=== PATIENT | female | born 1985 | race Caucasian/White ===

== ENCOUNTER → 2021-01-01 | Outpatient (CLI) | payer MEDICAID | END | disposition home or self-care (01) | LOC: LABWHC1 14:10 | PROVIDERS: ATTEND Emergency Medicine | DX: Z20.822 Contact with and (suspected) exposure to COVID-19 (principal) | CPT/HCPCS: 87635 ==

== ENCOUNTER 2021-12-23 16:51 | Emergency (ER) | payer MEDICAID ==
[2021-12-23] MEDS ORDERED: SODIUM CHLORIDE 0.9% 1,000 ML IV STA (17:13)
[2021-12-23] MEDS ORDERED: ASPIRIN 81 MG PO STA (17:30)
[2021-12-23 17:45] LABS: Basophils # (A) 0.1 k/uL (0-0.2); Basophils % (A) 0 %; Eosinophils % (A) 0 %; HGB 13.9 gm/dL (11.4-16.0); Lymphocytes # (A) 2.1 k/uL (1.0-4.8); Lymphocytes % (A) 17 %; MCH 28.9 pg (25.0-35.0); MCV 87.6 fL (80.0-100.0); Mean Platelet Volume 7.9; Monocytes # (A) 0.4 k/uL (0-1.0); Monocytes % (A) 3 %; Neutrophils # (A) 9.6 k/uL (1.3-7.7); Neutrophils % (A) 79 %; Platelet Count 372 k/uL (150-450); RDW 12.6 % (11.5-15.5); WBC 12.2 k/uL (3.8-10.6)
[2021-12-23 17:54] LABS: ALT 16 U/L (4-34); AST 22 U/L (14-36); African American GFR (CKD) >90 (>60 ml/min/1.73 sqM); Alkaline Phosphatase 86 U/L (38-126); Anion Gap 15 mmol/L; Blood Urea Nitrogen 12 mg/dL (7-17); Calcium 9.9 mg/dL (8.4-10.2); Carbon Dioxide 22 mmol/L (22-30); Chloride 103 mmol/L (98-107); Glucose 103 mg/dL (74-99); Magnesium 1.7 mg/dL (1.6-2.3); Non-African American GFR(CKD) >90 (>60 ml/min/1.73 sqM); Potassium 3.9 mmol/L (3.5-5.1); Sodium 140 mmol/L (137-145); Total Bilirubin 0.7 mg/dL (0.2-1.3)
--- NOTE | 2021-12-23 17:54 | XR ---
EXAMINATION TYPE: XR chest 2V DATE OF EXAM: 12/23/2021 COMPARISON: NONE HISTORY: Chest pain TECHNIQUE: Frontal and lateral views of the chest are obtained. FINDINGS: There is no focal air space opacity, pleural effusion, or pneumothorax seen. The cardiac silhouette size is within normal limits. The osseous structures are intact. IMPRESSION: No acute cardiopulmonary process.
[2021-12-23 17:57] LABS: INR 0.9 (<1.2)
[2021-12-23 17:58] LABS: Partial Thromboplastin Time 24.3 sec (22.0-30.0); Prothrombin Time 10.3 sec (9.0-12.0)
--- NOTE | 2021-12-23 18:30 | ED ---
Chest Pain HPI - General Chief Complaint: Chest Pain Stated Complaint: chest pain Time Seen by Provider: 12/23/21 17:08 Source: patient Mode of arrival: ambulatory Limitations: no limitations - History of Present Illness Initial Comments: Patient is an otherwise healthy 36-year-old female who presents to the emergency department with a chief complaint of chest pain. Patient states the chest pain started at 12:30 PM today. Pain was initially intermittent and then became constant which concerned patient. Pain is sharp in the left side of her chest w ith radiation to the back. Pain is not related to activity. Pain occurs at rest. Denies lightheadedness, dizziness, palpitations, shortness of breath, abdominal pain, nausea, vomiting, and sweating. States this is never occurred before. Denies personal and family history of cardiac disease. States she does not consume tobacco in 12 years. Reports occasional alcohol use. Does state that she was more stress than usual today due to having a child custody hearing with her son's biological father. 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 - Related Data Home Medications Medication Instructions Recorded Confirmed No Known Home Medications 12/23/21 12/23/21 Allergies Allergy/AdvReac Type Severity Reaction Status Date / Time No Known Allergies Allergy Verified 12/23/21 18:12 Review of Systems ROS Statement: Those systems with pertinent positive or pertinent negative responses have been documented in the HPI. ROS Other: All systems not noted in ROS Statement are negative. EKG Findings - EKG Comments: EKG Findings:: EKG taken at 17:24. Sense tachycardia, no ST or T-wave abnormalities. Ventricular rate 102. DE interval 140. QRS duration 97. QTc 399 Past Medical History Past Medical History: No Reported History History of Any Multi-Drug Resistant Organisms: None Reported Past Surgical History: No Surgical Hx Reported Past Psychological History: No Psychological Hx Reported Smoking Status: Never smoker Past Alcohol Use History: Occasional Past Drug Use History: None Reported General Exam Limitations: no limitations General appearance: alert, in no apparent distress Head exam: Present: atraumatic, normocephalic, normal inspection Respiratory exam: Present: normal lung sounds bilaterally. Absent: respiratory distress, wheezes, rales, rhonchi, stridor, chest wall tenderness, accessory muscle use, decreased breath sounds Cardiovascular Exam: Present: normal rhythm, tachycardia, normal heart sounds. Absent: regular rate, systolic murmur, diastolic murmur, rubs, gallop, clicks GI/Abdominal exam: Present: soft, normal bowel sounds. Absent: distended, tenderness, guarding, rebound, rigid Back exam: Present: normal inspection, full ROM. Absent: tenderness, paraspinal tenderness, vertebral tenderness Neurological exam: Present: alert, oriented X3, CN II-XII intact Psychiatric exam: Present: normal affect, normal mood Skin exam: Present: warm, dry, intact, normal color. Absent: rash Course Vital Signs 12/23/21 12/23/21 16:59 19:03 Temperature 99.3 F 99.5 F Pulse Rate 107 H 66 Respiratory 20 18 Rate Blood Pressure 135/90 118/70 O2 Sat by Pulse 100 99 Oximetry Chest Pain MDM - MDM This is a 36-year-old female who presents to the emergency department for evaluation of chest pain. Thorough history and examination were performed. Patient is well-appearing and in no apparent distress. Normal S1 and S2. She is mildly tachycardic at 107. There is no chest wall tenderness. Patient denies shortness of breath. EKG shows sinus tachycardia without ST segment or T-wave abnormalities. Ventricular rate at 102. Laboratory studies obtained. White blood cell count is minimally elevated at 12.2, likely stress reaction. Troponin is within normal limits. Patient given aspirin. She was monitored closely in the emergency department. Her chest pain did resolve. Patient walked around in the emergency department without return of chest pain. Results discussed with patient. This is a young, well-appearing patient without risk factors for adverse cardiac outcomes. Patient will be discharged to treat return parameters. Patient knows Dr. Blanco and Dr. Cruz well. Patient discharged in stable condition. Dr. Hansen is my attending. Disposition Clinical Impression: Chest pain Disposition: HOME SELF-CARE Condition: Good Instructions (If sedation given, give patient instructions): Chest Pain (ED) Additional Instructions: Please follow up with ticketing agent if chest pain continues. return to the emergency department if you experience new, concerning, or worsening symptoms. Is patient prescribed a controlled substance at d/c from ED?: No Referrals: Vielka Phelps DO [Primary Care Provider] - 1-2 days Time of Disposition: 18:30
[2021-12-23 19:05] VITALS: BP 118/70; PULSE 66; RESP 18; TEMP 99.5
== END 2021-12-23 19:06 | disposition home or self-care (01) ==
LOC: EC 16:51
DX: R07.89 Other chest pain (principal)
CPT/HCPCS: 36415; 71046; 80053; 83735; 84484; 85025; 85610; 85730; 93005; 99285

== ENCOUNTER → 2023-04-14 | Outpatient (CLI) | payer MEDICAID ==
--- NOTE | 2023-04-14 10:57 | US ---
EXAMINATION TYPE: Ultrasound OB less than 14 weeks. DATE OF EXAM: 04/14/2023 10:44 AM COMPARISON: NONE CLINICAL INDICATION: Female, 37 years old with history of O26.851 SPOTTING IN ; EXAM PERFORMED: Transabdominal and transvaginal ultrasound. EXAM MEASUREMENTS: GESTATIONAL AGE / DATING Physician Established: (6 weeks/2 days) EDC: 12/06/2023 Dates by Current Scan for: Unable to date by today's study MATERNAL ANATOMY Uterus: 7.8 x 4.7 x 5.5 cm Right Ovary: 3.2 x 2.2 x 1.7 cm Left Ovary: 3.1 x 2.1 x 1.8 cm Post CDS / Adnexa: WNL Presence of free fluid: NO Presence of corpus luteal cyst: NO Presence of subchorionic bleed: ? GESTATION / SURVEY CRL: NA MSD: 0.42 NOT GIVEN Yolk Sac (normal less than 6mm): NOT SEEN Heart Rate: Too early Rhythm: N/A IUP: Gestational sac without evidence of pole IMPRESSION: 1. Tiny saclike structure within the endometrium with no yolk sac or pole. This cannot be defin itively confirmed has an intrauterine at this time. Considerations would include an early, nonvisualized intrauterine , failed or nonvisualized ectopic . Correlatio n should be made with serum beta-hCG at this time. Follow-up with serial beta-hCG and ultrasound is a lso recommended as clinically indicated. 2. No evidence of ovarian torsion or adnexal mass.
== END | disposition home or self-care (01) ==
LOC: RADUSWWP 10:19
PROVIDERS: ATTEND Obstetrics & Gynecology Obstetrics
DX: O26.851 Spotting complicating pregnancy, first trimester (principal); O20.0 Threatened abortion; Z3A.01 Less than 8 weeks gestation of pregnancy
CPT/HCPCS: 76801; 76817; 84144; 84702

== ENCOUNTER → 2023-04-17 | Outpatient (CLI) | payer MEDICAID | END | disposition home or self-care (01) | LOC: LABMAIN 16:30 | PROVIDERS: ATTEND Obstetrics & Gynecology Obstetrics | DX: Z53.9 Procedure and treatment not carried out, unspecified reason (principal) ==

== ENCOUNTER → 2023-04-25 | Outpatient (CLI) | payer MEDICAID | END | disposition home or self-care (01) | LOC: LABMAIN 02:10 | PROVIDERS: ATTEND Obstetrics & Gynecology Obstetrics | DX: O03.4 Incomplete spontaneous abortion without complication (principal) | CPT/HCPCS: 84702 ==

== ENCOUNTER 2023-07-26 15:53 | Outpatient (CLI) | payer MEDICAID | END 2023-07-26 16:29 | LOC: FBPOP 15:53 | PROVIDERS: ATTEND Obstetrics & Gynecology Obstetrics | DX: Z34.81 Encounter for supervision of other normal pregnancy, first trimester (principal) | CPT/HCPCS: 36415; 84144; 84702 ==

== ENCOUNTER 2023-07-28 20:28 | Outpatient (CLI) | payer MEDICAID | END 2023-07-28 22:00 | disposition home or self-care (01) | LOC: FBPOP 20:28 | PROVIDERS: ATTEND Obstetrics & Gynecology Obstetrics | DX: Z34.81 Encounter for supervision of other normal pregnancy, first trimester (principal) | CPT/HCPCS: 36415; 84702 ==

== ENCOUNTER → 2023-09-13 | Outpatient (CLI) | payer MEDICAID ==
[2023-09-13 15:44] LABS: HCT 35.8 % (37.2-46.3); HGB 11.7 g/dL (12.0-15.0); MCH 28.8 pg (27.0-32.0); MCHC 32.7 g/dL (32.0-37.0); MCV 88.2 FL (80.0-97.0); NRBC Per 100 WBC 0 X 10*3/uL (0.00-0.01); Platelet Count 287 X 10*3/uL (140-440); RBC 4.06 X 10*6/uL (4.10-5.20); RDW 13.5 % (11.5-14.5); WBC 9.74 X 10*3/uL (4.50-10.00)
[2023-09-13 16:00] LABS: Hepatitis B Surface Antigen Nonreactive (Nonreactive); Hepatitis C IgG Antibody Nonreactive (Nonreactive)
[2023-09-13 19:49] LABS: HIV 2 AB Non-Reactive (Non-Reactive); HIV AB P24 Non-Reactive (Non-Reactive); HIV P24 AG Non-Reactive (Non-Reactive)
== END | disposition home or self-care (01) ==
LOC: LABWHC1 08:57
PROVIDERS: ATTEND Obstetrics & Gynecology Obstetrics
DX: Z34.81 Encounter for supervision of other normal pregnancy, first trimester (principal); Z3A.00 Weeks of gestation of pregnancy not specified
CPT/HCPCS: 36415; 82950; 83036; 85027; 86762; 86780; 86803; 86850; 86900; 86901; 87340; 87390

== ENCOUNTER → 2024-01-19 | Outpatient (CLI) | payer MEDICAID ==
[2024-01-19 11:51] LABS: Glucose 3 Hour, Gest 141 mg/dL
== END | disposition home or self-care (01) ==
LOC: LABWHC1 07:20
PROVIDERS: ATTEND Obstetrics & Gynecology Obstetrics
DX: O99.810 Abnormal glucose complicating pregnancy (principal)
CPT/HCPCS: 36415; 82951; 82952

== ENCOUNTER 2024-02-13 01:22 | Outpatient (CLI) | payer MEDICAID ==
[2024-02-13 02:13] VITALS: BP 130/66; PULSE 91; RESP 15
--- NOTE | 2024-02-29 09:40 | P.MSEPDOC ---
Presenting Problems - Arrival Data Date of Arrival on Unit: 02/13/24 Time of Arrival on Unit: 01:23 Mode of Transport: Ambulatory - Complaint OB-Reason for Admission/Chief Complaint: NST, Other Comment: Patient arrived for a weekly NST Medical History - Information : 4 Para: 2 Term: 2 : 0 Abortions: Spontaneous or Elective: 1 Number of Living Children: 2 - Gestational Age Gestational Age by DAKSHA (wks/days): 34 Weeks and 1 Days - History Comment: GDM Review of Systems - Review of Systems Constitutional: No problems Breast: No problems ENT: No problems, Cough Cardiovascular: No problems Respiratory: No problems Gastrointestinal: No problems Genitourinary: No problems Musculoskeletal: No problems Neurological: No problems Skin: No problems Vital Signs - Pulse Pulse Oximetery Pulse Rate: 91 Pulse Assessment Method: Automatic Cuff - Respirations Respiratory Rate: 15 Oxygen Delivery Method: Room Air O2 Sat by Pulse Oximetry: 100 - Blood Pressure Right Arm Blood Pressure: 130/66 Blood Pressure Mean: 87 Blood Pressure Source: Automatic Cuff Medical Screen Scoring - Assessment - Baby A Baseline FHR: 130 Heart Rate - NICHD Category: Category I (Normal) NST: Reactive Maternal Triage Index - Scheduled/Requesting Priority 5 Scheduled/Requesting Priority 5: Yes Criteria Met for Priority 5: Patient arrived for weekly NST RX. Disposition - Disposition OB Disposition: Discharge to home Discharge Date: 02/13/24 Discharge Time: 01:43 I agree with the RN Medical Screening Exam: Yes Case reviewed; plan agreed upon as documented in EMR&OBIX.: Yes Diagnosis: RELATED CONDITIONS, UNSPECIFIED, THIRD TRIMESTER
== END 2024-02-13 01:43 | disposition home or self-care (01) ==
LOC: FBPOP 01:22
PROVIDERS: ATTEND Obstetrics & Gynecology

== ENCOUNTER 2024-03-07 07:28 | Inpatient (IN) | payer MEDICAID ==
[2024-03-07] MEDS ORDERED: miSOPROStoL 200 MCG TAB RECTAL PRN (08:00)
[2024-03-07] MEDS ORDERED: CARBOPROST TROMETHAMINE 250 MCG/ML 1 ML AMP IM PRN (08:00)
[2024-03-07] MEDS ORDERED: METHYLERGONOVINE 0.2 MG/ML 1 ML AMP IM PRN (08:00)
[2024-03-07] MEDS ORDERED: TRANEXAMIC 1,000 MG/100ML-NACL 1,000 MG in EMPTY BAG 1 BAG IV PRN (08:00)
[2024-03-07] MEDS ORDERED: TERBUTALINE 1 MG/ML VIAL SQ PRN (08:00)
[2024-03-07] MEDS ORDERED: miSOPROStoL 200 MCG TAB PO PRN (08:00)
[2024-03-07] MEDS ORDERED: OXYTOCIN 30 UNITS/500 ML NS 30 UNIT in SALINE 1 500ML.BAG IV SCH (08:00)
[2024-03-07] MEDS ORDERED: OXYTOCIN 10 UNIT/ML 1 ML VIAL IM PRN (08:00)
[2024-03-07] MEDS: LACTATED RINGERS 1,000 ML IV SCH (08:37)
[2024-03-07 08:41] LABS: Glucose,Whole Blood 108 mg/dL (70-110)
[2024-03-07 08:49] VITALS: RESP 16
[2024-03-07] MEDS ORDERED: ROPIVACAINE 5 MG/ML 30 ML VIAL ONE (10:11)
[2024-03-07] MEDS ORDERED: SODIUM CHLORIDE 0.9% 250 ML BAG ONE (10:11)
[2024-03-07] MEDS ORDERED: fentaNYL (PF) 50 MCG/ML 5 ML AMP ONE (10:11)
[2024-03-07 10:15] LABS: Anisocytosis Slight; Basophils % (A) 0 %; Eosinophils # (A) 0.1 k/uL (0-0.7); Eosinophils % (A) 1 %; HCT 35.2 % (34.0-46.0); HGB 11.5 gm/dL (11.4-16.0); Lymphocytes # (A) 2.6 k/uL (1.0-4.8); Lymphocytes % (A) 24 %; MCH 25.2 pg (25.0-35.0); MCHC 32.7 g/dL (31.0-37.0); MCV 77.2 fL (80.0-100.0); Mean Platelet Volume 9.4; Microcytosis Slight; Monocytes # (A) 0.6 k/uL (0-1.0); Monocytes % (A) 5 %; Neutrophils # (A) 7.4 k/uL (1.3-7.7); Neutrophils % (A) 68 %; Platelet Count 277 k/uL (150-450); RBC 4.56 m/uL (3.80-5.40); RDW 17.7 % (11.5-15.5); WBC 10.9 k/uL (3.8-10.6)
[2024-03-07] MEDS: OXYTOCIN 30 UNITS/500 ML NS 30 UNIT in SALINE 1 500ML.BAG IV SCH (11:30)
[2024-03-07] MEDS ORDERED: NALBUPHINE 10 MG/ML (10 ML MDV) IV PRN (12:43)
[2024-03-07] MEDS: LIDOCAINE 0.5% (PF) 5 MG/ML (50 ML SDV) SQ PRN (12:59)
[2024-03-07] MEDS ORDERED: ZOLPIDEM 5 MG TAB PO PRN (15:26)
[2024-03-07] MEDS ORDERED: diphenhydrAMINE 25 MG CAP PO PRN (15:26)
[2024-03-07] MEDS ORDERED: diphenhydrAMINE 50 MG/ML 1 ML VIAL IVP PRN ×2 (15:26)
[2024-03-07] MEDS ORDERED: SIMETHICONE 80 MG CHEWABLE PO PRN (15:26)
[2024-03-07] MEDS ORDERED: BENZOCAINE/MENTHOL SPRAY 1 GM/SPRAY AEROSOL TOPICAL PRN (15:26)
[2024-03-07] MEDS ORDERED: diphenhydrAMINE 50 MG CAP PO PRN (15:26)
[2024-03-07] MEDS ORDERED: HYDROCORTISONE 2.5% RECTAL CREAM 30 GM TUBE RECTAL PRN (15:26)
[2024-03-07] MEDS ORDERED: LANOLIN CREAM 1 GM TUBE TOPICAL PRN (15:26)
--- NOTE | 2024-03-07 15:36 | P.PROBDLV ---
Vaginal Delivery Note - . Vaginal Delivery Note: 38-year-old 4 para 2-0-1-2 at 37-3/7 weeks that presents to labor and delivery active labor. Patient was admitted and requested epidural. Epidural was placed without difficulty by the anesthesia department. Patient underwent amniotomy and clear fluid was obtained. Contractions were noted to space therefore Pitocin augmentation of labor was begun. Patient was extremely uncomfortable despite epidural. Patient progressed quickly to complete began pushing and had a normal spontaneous vaginal delivery of a viable female 1240, weight of 7 pounds 3.5 ounces, Apgars of 9 and 9 at 1 and 5 minutes respectively. After 2-minute delay the umbilical cord was doubly clamped and cut. Placenta was delivered spontaneously intact with a three-vessel cord being noted. On inspection the patient's vaginal vault a first-degree vaginal laceration was appreciated. Laceration was injected with lidocaine and repaired in the usual fashion with 3-0 Rapide. Uterus was noted to be firm below the umbilicus. Estimated blood loss 100 cc Patient and infant tolerated delivery well All counts were noted be correct x 2 at the end of the delivery.
--- NOTE | 2024-03-07 15:37 | P.HPOB ---
History of Present Illness H&P Date: 03/07/24 Chief Complaint: IUP at 37-3/7 weeks, active labor 38-year-old 4 para 2-0-1-2 at 37-3/7 weeks that presents to labor and delivery with complaints of regular painful contractions approximately 4 minutes apart. Patient was noted to be 4 cm approximately 24 hours ago, upon further recheck she is 6/70/-2 station bulging bag of water is appreciated. Patient is breathing through contractions. Patient has been receiving routine care which has been essentially uncomplicated. She was diagnosed with gestational diabetes and has done well with diet/metformin. Patient underwent testing and this has been normal in nature. Patient denies vaginal bleeding or loss of fluid. Review of Systems Constitutional: Denies chills, Denies fatigue, Denies fever Ears, nose, mouth and throat: Denies headache Cardiovascular: Reports leg edema Respiratory: Denies dyspnea Gastrointestinal: Denies constipation, Denies diarrhea, Denies nausea, Denies vomiting Genitourinary: Reports Past Medical History Past Medical History: No Reported History History of Any Multi-Drug Resistant Organisms: None Reported Past Surgical History: No Surgical Hx Reported Past Anesthesia/Blood Transfusion Reactions: No Reported Reaction Past Psychological History: No Psychological Hx Reported Smoking Status: Never smoker Past Alcohol Use History: Occasional Past Drug Use History: None Reported - Past Family History Father Family Medical History: No Reported History Medications and Allergies Home Medications Medication Instructions Recorded Confirmed Type Ferrous Sulfate, Dried [Iron] 159 mg PO DAILY 02/13/24 03/07/24 History Vit No.179/Iron/Folic 1 each PO DAILY 02/13/24 03/07/24 History [ Tablet] metFORMIN HCL 1,000 mg PO DAILY 02/13/24 03/07/24 History Allergies Allergy/AdvReac Type Severity Reaction Status Date / Time No Known Allergies Allergy Verified 07/28/23 21:38 Exam Osteopathic Statement: *. No significant issues noted on an osteopathic structural exam other than those noted in the History and Physical/Consult. Vital Signs Temp Pulse Resp BP Pulse Ox 03/07/24 08:45 98.4 F 100 16 131/75 100 Intake and Output 03/06/24 03/07/24 03/07/24 22:59 06:59 14:59 Other: Weight 100.244 kg Targeted physical exam is performed this date General Is a well-nourished well-developed female in active labor, patient is noted to be breathing through contractions. Breathing appears unlabored, abdomen is noted to be gravid, +1 bilateral lower extremity edema is noted, heart tones noted be category 1, and she is juan every 2 to 4 minutes. On cervical exam she is 5-6/70/-2 station bulging bag of water is appreciated. Results Result Diagrams: 03/07/24 08:19 Abnormal Lab Results - Last 24 Hours (Table) 03/07/24 Range/Units 08:19 WBC 10.9 H (3.8-10.6) k/uL MCV 77.2 L (80.0-100.0) fL RDW 17.7 H (11.5-15.5) % Assessment and Plan (1) Term Current Visit: Yes Status: Acute Code(s): Z34.90 - ENCNTR FOR SUPRVSN OF NORMAL , UNSP, UNSP TRIMESTER SNOMED Code(s): 58134138 (2) Active labor Current Visit: Yes Status: Acute Code(s): OJF6616 - SNOMED Code(s): 056566230 (3) Gestational diabetes Current Visit: Yes Status: Acute Code(s): O24.419 - GESTATIONAL DIABETES MELLITUS IN , UNSP CONTROL SNOMED Code(s): 00709044 Plan: 38-year-old -0-1-2 at 37-3/7 weeks that presents in active labor. Patient is admitted to labor and delivery. Patient does epidural. Anesthesia is notified and will place. Patient will undergo amniotomy after comfortable with epidural Anticipate spontaneous vaginal delivery.
[2024-03-07] MEDS: ACETAMINOPHEN TAB 500 MG TAB PO SCH (20:19)
[2024-03-07] MEDS: IBUPROFEN 800 MG TAB PO SCH (20:20)
[2024-03-07] MEDS: SENNOSIDES-DOCUSATE SODIUM 1 EACH TAB PO SCH (21:42)
[2024-03-08 06:19] LABS: Anisocytosis Slight; Basophils % (A) 0 %; Eosinophils # (A) 0.1 k/uL (0-0.7); Eosinophils % (A) 1 %; HCT 32.9 % (34.0-46.0); HGB 10.3 gm/dL (11.4-16.0); Hypochromasia Moderate; Lymphocytes # (A) 2.8 k/uL (1.0-4.8); Lymphocytes % (A) 25 %; MCH 24.7 pg (25.0-35.0); MCHC 31.2 g/dL (31.0-37.0); MCV 79.3 fL (80.0-100.0); Mean Platelet Volume 8.6; Microcytosis Slight; Monocytes # (A) 0.6 k/uL (0-1.0); Monocytes % (A) 5 %; Neutrophils # (A) 7.1 k/uL (1.3-7.7); Neutrophils % (A) 65 %; Platelet Count 239 k/uL (150-450); RBC 4.15 m/uL (3.80-5.40); RDW 17.8 % (11.5-15.5)
[2024-03-08 09:54] VITALS: BP 140/92; PULSE 60; TEMP 97.8
--- NOTE | 2024-03-08 10:00 | P.DS ---
Providers Date of admission: 03/07/24 07:28 Expected date of discharge: 03/08/24 Attending physician: Rosa Greene Primary care physician: Stated None - Discharge Diagnosis(es) (1) Term Current Visit: Yes Status: Acute (2) Active labor Current Visit: Yes Status: Acute (3) Gestational diabetes Current Visit: Yes Status: Acute (4) Status post vaginal delivery Current Visit: Yes Status: Acute (5) Obstetric vaginal laceration with first degree perineal laceration Current Visit: Yes Status: Acute Hospital Course: 38-year-old 4 now para 3-0-1-3 that presented to labor and delivery at 37-3/7 weeks in active labor on 03/07. Patient was admitted to [facility]. Patient had been receiving routine care with myself which was complicated by diagnosis of gestational diabetes, metformin was added secondary to poor blood sugar control. Patient was admitted and did request epidural for pain control. Epidural was placed without difficulty by the anesthesia department. Patient underwent amniotomy and clear fluid was obtained. Contractions were noted to space therefore Pitocin augmentation of labor was begun. Patient quickly progressed to complete began pushing and had a normal spontaneous vaginal delivery of a viable female at 1240, weight of 7 pounds 3.5 ounces. Patient did sustain a first-degree vaginal laceration during delivery which was repaired in the usual fashion with 3-0 Rapide. Patient has done well post . On this day #1 she is ambulating and voiding without difficulty. She is tolerating a regular diet without nausea or vomiting. She states her pain is well-controlled. She denies concerns and would like discharge home at 24 hours. Patient Condition at Discharge: Good Plan - Discharge Summary New Discharge Prescriptions: No Action metFORMIN HCL 1,000 mg PO DAILY Vit No.179/Iron/Folic [ Tablet] 1 each PO DAILY Ferrous Sulfate, Dried [Iron] 159 mg PO DAILY Discharge Medication List Ferrous Sulfate, Dried [Iron] 159 mg PO DAILY 02/13/24 [History] Vit No.179/Iron/Folic [ Tablet] 1 each PO DAILY 02/13/24 [History] metFORMIN HCL 1,000 mg PO DAILY 02/13/24 [History] Follow up Appointment(s)/Referral(s): Rosa Greene DO [Doctor of Osteopathic Medicine] - 6 Weeks Patient Instructions/Handouts: Vaginal Delivery (DC), Vaginal Delivery (GEN) Activity/Diet/Wound Care/Special Instructions: Tub baths or intercourse until 6 weeks . [id number] ibuprofen as needed for pain. Patient is to call the office and make a routine visit for 6 weeks. Should she have any concerns prior to this visit she is urged to call and be seen sooner. Discharge Disposition: HOME SELF-CARE
== END 2024-03-08 13:45 | disposition home or self-care (01) | DRG 807 ==
LOC: 4FBP 07:28
PROVIDERS: ADMIT Obstetrics & Gynecology Obstetrics; ATTEND Obstetrics & Gynecology Obstetrics
PROC: 10E0XZZ Delivery of Products of Conception, External Approach (ICD-10-PCS; principal; 2024-03-07)
PROC: 0HQ9XZZ Repair Perineum Skin, External Approach (ICD-10-PCS; 2024-03-07)
DX: O24.425 Gestational diabetes mellitus in childbirth, controlled by oral hypoglycemic drugs (principal); Z37.0 Single live birth; O70.0 First degree perineal laceration during delivery; Z3A.37 37 weeks gestation of pregnancy
CPT/HCPCS: 83036; 85025; 86850; 86900; 86901